=== PATIENT | female | born 1975 | race Caucasian/White ===

== ENCOUNTER 2016-09-03 21:13 | Emergency (ER) | payer BC, OTHER ==
[~2016-09-03] VITALS: Ht 152.4 cm; Wt 49.1 kg
[2016-09-03 21:18] VITALS: Ht 152.4 cm; Wt 49.1 kg
[2016-09-03] MEDS ORDERED: SOD CHLORIDE 0.9% 1,000 ML IV STA (21:43)
[2016-09-03] MEDS ORDERED: ONDANSETRON 4 MG INJ IV STA (21:43)
[2016-09-03] MEDS ORDERED: BEN25 PO (21:45)
[2016-09-03] MEDS ORDERED: FAMO40TA52 PO (21:45)
[2016-09-03] MEDS ORDERED: PRED20TA PO (21:45)
[2016-09-03] MEDS ORDERED: EPIN0.3P4 INJ (21:45)
[2016-09-03 21:58] LABS: ADD SCAN DIFF NO
[2016-09-03] MEDS ORDERED: FAMOTIDINE 20 MG TAB PO ONE (22:00)
[2016-09-03] MEDS ORDERED: DIPHENHYDRAMINE 50 MG INJ IV ONE (22:00)
[2016-09-03] MEDS ORDERED: predniSONE 20 MG TAB PO ONE (22:00)
[2016-09-03 22:01] LABS: BASOPHILS % 0.3 % (0.0-2.0); EOSINOPHILS # 0.1 10^3/ul (0.0-0.5); EOSINOPHILS % 1.1 % (0.0-7.0); HEMATOCRIT 38.4 % (37.0-47.0); HEMOGLOBIN 13.3 g/dl (12.0-16.0); LYMPHOCYTES # 2.7 10^3/ul (0.8-2.9); MEAN CORPUSCULAR HEMOGLOBIN 31.7 pg (29.0-33.0); MEAN CORPUSCULAR HGB CONC 34.6 g/dl (32.0-37.0); MEAN CORPUSCULAR VOLUME 91.4 fl (82.0-101.0); MEAN PLATELET VOLUME 9.6 fl (7.4-10.4); MONOCYTE # 0.6 10^3/ul (0.3-0.9); MONOCYTES % 5.1 % (0.0-11.0); NEUTROPHIL # 8.6 10^3/ul (1.6-7.5); NEUTROPHILS % 70.7 % (39.0-77.0); PLATELET COUNT 284 10^3/UL (140-415); RED CELL DISTRIBUTION WIDTH 12.2 % (11.5-14.5); WHITE BLOOD COUNT 12.2 10^3/ul (4.8-10.8)
[2016-09-03 22:14] LABS: POTASSIUM 3.3 mmol/L (3.5-5.1)
[2016-09-03 22:16] LABS: CREATININE 0.64 mg/dl (0.44-1.00)
[2016-09-03 22:17] LABS: CALCIUM 9.3 mg/dl (8.4-10.2)
[2016-09-03 23:05] VITALS: BP 123/65; PULSE 78; RESP 18; TEMP 97.9
--- NOTE | 2016-09-04 01:53 | ERD ---
ER Documentation Chief Complaint Date/Time DATE: 09/04/16 TIME: 01:46 Chief Complaint pt took a little bit of amox and started itching and vomiting 10 min after HPI 41-year-old woman brought in by EMS for allergic reaction after ingesting some of her daughter's amoxicillin, patient states she has a history of penicillin allergy. After ingestion she developed abdominal cramping and a few episodes of loose stools, severe diffuse pruritic rash over the torso and extremities, itchy watery eyes, and shortness of breath. She states she used about 50 mg of diphenhydramine with improvement in her symptoms and call 911. She was transported here and states her symptoms have improved. She denies chest pain, no shortness of breath while in the ED, no vomiting, no headache or blurry vision. ROS All systems reviewed and are negative except as per history of present illness. Medications Home Meds Active Scripts Famotidine* (Famotidine*) 40 Mg Tablet, 40 MG PO HS, #7 TAB Prov:CRUZITO COYLE MD 09/03/16 Diphenhydramine Hcl* (Benadryl*) 25 Mg Cap, 25 MG PO Q6 Y for ITCHING/RASH, #15 TAB Prov:CRUZITO COYLE MD 09/03/16 Prednisone* (Prednisone*) 20 Mg Tab, 40 MG PO DAILY for 4 Days, TAB Prov:CRUZITO COYLE MD 09/03/16 Epinephrine (Epipen 2-John) 0.3 Mg/0.3 Ml Pen.injctr, 1 EA INJ ONCE Y for ALLERGIC REACTION, #1 EA Prov:CRUZITO COYLE MD 09/03/16 Allergies Allergies: Coded Allergies: Penicillins (Unverified Allergy, Unknown, 09/03/16) amoxicillin (Unverified Allergy, Unknown, 09/03/16) PMhx/Soc None History of Surgery: Yes (c section x 2) Anesthesia Reaction: No Hx Neurological Disorder: No Hx Respiratory Disorders: No Hx Cardiac Disorders: No Hx Psychiatric Problems: No Hx Miscellaneous Medical Probl: No Hx Alcohol Use: No Hx Substance Use: No Hx Tobacco Use: No Smoking Status: Never smoker FmHx Family History: No diabetes Physical Exam Vitals Vital Signs Date Time Temp Pulse Resp B/P Pulse Ox O2 Delivery O2 Flow Rate FiO2 09/03/16 23:05 97.9 78 18 123/65 100 Room Air 09/03/16 21:18 97.2 81 20 116/68 100 Physical Exam GENERAL: Well-developed, well-nourished, well-hydrated, in no apparent distress , looks nontoxic in appearance HEENT: Moist mucous membranes, injected conjunctiva, no cervical spine tenderness or step-off deformities, no goiter, no jaundice or icterus, extraocular movements intact without pain. No submandibular induration, and no pharyngeal erythema NEURO: Alert and oriented 3, cranial nerves II through XII intact bilaterally, pupils equal round reactive to light, no focal deficits or facial asymmetry, sensation intact distally Strength 5/5 in upper and lower extremities bilaterally CARDIAC: Regular rate and rhythm, no murmurs rubs or gallops LUNGS: Clear bilaterally no wheezing crackles or stridor ABDOMEN: Soft nontender, no guarding, no rigidity, no rebound, no psoas sign no obturator sign. Normoactive bowel sounds SKIN: Warm and dry to touch, no abrasions, contusions, or hematomas, no lacerations, no ecchymosis, no target lesions, and without ulcers EXTREMITIES: No clubbing cyanosis or edema, calves are bilaterally symmetrical, no Homans sign, no popliteal cord sign. Distal pulses equal and bilateral PSYCH: Normal affect without agitation or irritability Result Diagram: 09/03/16214909/03/162149 Results 24 hrs Laboratory Tests Test 09/03/16 21:50 White Blood Count 12.210^3/ul Red Blood Count 4.2010^6/ul Hemoglobin 13.3g/dl Hematocrit 38.4% Mean Corpuscular Volume 91.4fl Mean Corpuscular Hemoglobin 31.7pg Mean Corpuscular Hemoglobin Concent 34.6g/dl Red Cell Distribution Width 12.2% Platelet Count 53542^3/UL Mean Platelet Volume 9.6fl Neutrophils % 70.7% Lymphocytes % 22.0% Monocytes % 5.1% Eosinophils % 1.1% Basophils % 0.3% Nucleated Red Blood Cells % 0.0/100WBC Neutrophils # 8.610^3/ul Lymphocytes # 2.710^3/ul Monocytes # 0.610^3/ul Eosinophils # 0.110^3/ul Basophils # 0.010^3/ul Nucleated Red Blood Cells # 0.010^3/ul Sodium Level 139mmol/L Potassium Level 3.3mmol/L Chloride Level 103mmol/L Carbon Dioxide Level 23mmol/L Anion Gap 16 Blood Urea Nitrogen 17mg/dl Creatinine 0.64mg/dl Glucose Level 125mg/dl Calcium Level 9.3mg/dl Current Medications Medications (Trade) Dose Ordered Sig/Olesya Route PRN Reason Start Time Stop Time Status Last Admin Dose Admin Sodium Chloride (NS) 1,000 ml @ 1,000 mls/hr Q1H STAT IV 09/03/16 21:43 09/03/16 22:42 DC 09/03/16 21:54 Ondansetron HCl (Zofran Inj) 4 mg ONCE STAT IV 09/03/16 21:43 09/03/16 21:45 DC 09/03/16 21:54 Diphenhydramine HCl (Benadryl) 25 mg ONCE ONCE IV 09/03/16 22:00 09/03/16 22:01 DC 09/03/16 21:54 Prednisone (Prednisone) 40 mg ONCE ONCE PO 09/03/16 22:00 09/03/16 22:01 DC 09/03/16 21:54 Famotidine (Pepcid) 20 mg ONCE ONCE PO 09/03/16 22:00 09/03/16 22:01 DC 09/03/16 21:54 Procedures/MDM IV line was established patient was placed on mobile device developer rhythm strip revealed a sinus rhythm at about 80 bpm with upright P and T waves. Patient was afebrile. I administered 1 L normal saline intravenously, prednisone 40 mg p.o., famotidine 20 mg p.o., Zofran 4 mg IV, and diphenhydramine 25 mg IV with good effect. CBC and electrolytes were unremarkable Patient's lung sounds were clear, resting room air oxygen saturation was 98%, patient feels much better. She will be discharged with medications and EpiPen. Differential diagnoses considered, included but not limited to anaphylaxis, Hunt-Aristides syndrome, aortic dissection, abdominal aortic aneurysm, sepsis, stroke, meningitis, encephalitis, pneumonia, appendicitis, cholecystitis, bowel obstruction, pyelonephritis, nephrolithiasis, cystitis, as well as metabolic, hematologic, and electrolyte abnormalities. As well as abscess, cellulitis, fractures, and dislocations. Patient feels much better at this time, and vital signs are normal, symptoms have improved. I did give strict instructions to return to the ED if symptoms continue or worsen, patient will otherwise follow-up with primary care physician. Patient understood instructions and agreed to plan. Departure Diagnosis: Primary Impression: Allergic reaction Encounter type: initial encounter Qualified Code: T78.40XA - Allergic reaction, initial encounter Additional Impressions: Acute anaphylaxis Encounter type: initial encounter Qualified Code: T78.2XXA - Acute anaphylaxis, initial encounter Adverse reaction to beta lactam Encounter type: initial encounter Qualified Code: T36.8X5A - Adverse reaction to beta lactam, initial encounter Ruled Out: Allergy or intolerance to drug Condition: Good Patient Instructions: Allergic Reaction, Drug, Anaphylaxis, General CRUZITO COYLE MD September 04, 2016 01:53
== END 2016-09-03 23:05 | disposition home or self-care (01) ==
LOC: E/R 21:13
DX: R21 Rash and other nonspecific skin eruption (principal)
CPT/HCPCS: 80048; 85025; 99283; J1200; J2405; J7030; J7512